=== PATIENT | male | born 1970 | race American Indian/Alaskan Native ===

== ENCOUNTER 2019-10-24 12:42 | Emergency (ER) | payer SELFPAY ==
--- NOTE | 2019-10-24 13:01 | Emergency Department Report ---
ED Neuro Deficit HPI - General Stated Complaint: POSS STROKE Source: patient Limitations: No Limitations - History of Present Illness Initial Comments: 49-year-old male with no past medical history presents to ED with left-sided w eakness. Patient states symptom onset was 3 days ago. He reports weakness in his left arm and also decreased sensation in the left arm and leg. Patient states his tongue feels swollen, also reports he has had blurry vision for the last 3 days as well. He also reports facial droop. Patient denies headache. -: days(s) (3) Location: speech, left arm, left leg Presenting Symptoms: Present: Weak/Paralyzed One Side, Blurred/Loss of Vision, Facial Droop/Numbness History of same: No Place: home Severity: moderate Quality: weak, numb Improves With: none Worsens With: none On Anticoagulants: No Associated Symptoms: denies other symptoms - Related Data Allergies/Adverse Reactions: Allergies Allergy/AdvReac Type Severity Reaction Status Date / Time latex Allergy Rash Verified 10/24/19 12:43 ED Review of Systems ROS: Stated complaint: POSS STROKE Other details as noted in HPI Comment: All other systems reviewed and negative Neurological: weakness, numbness. denies: headache ED Neuro Physical Exam - General General appearance: alert, in no apparent distress, obese Suspected Stroke: Yes - Head Head exam: Present: atraumatic, normocephalic - Eye Eye exam: Present: normal appearance, PERRL, EOMI - ENT ENT exam: Present: mucous membranes moist - Neck Neck exam: Present: normal inspection - Respiratory Respiratory exam: Present: normal lung sounds bilaterally. Absent: respiratory distress - Cardiovascular Cardiovascular Exam: Present: regular rate, normal rhythm - GI/Abdominal GI/Abdominal exam: Present: soft. Absent: distended, tenderness - Extremities Exam Extremities exam: Present: normal inspection - Neurological Exam Neurological exam: Present: alert, oriented X3 - NIHSS Assessment Interval: Baseline 1a. Level of Consciousness: alert/keenly responsive 1b. LOC Questions: answers both correctly 1c. LOC Commands: performs tasks correctly 2. Best Gaze: normal 3. Visual: no visual loss 4. Facial Palsy: minor paralysis 5b. Motor Arm Right: no drift 5a. Motor Arm Left: drift 6a. Motor Leg Left: no drift 6b. Motor Leg Right: no drift 7. Limb Ataxia: absent 8. Sensory: mild/moderate sensory loss 9. Best Language: no aphasia 10. Dysarthria: mild/moderate dysarthria 11. Extinction/Inattention: no abnormality Total Score: 4 Stroke Severity: Minor Stroke - Psychiatric Psychiatric exam: Present: normal affect, normal mood - Skin Skin exam: Present: warm, dry, intact, normal color ED Course Vital Signs 10/24/19 10/24/19 10/24/19 12:54 13:00 13:32 Temperature Pulse Rate 92 H 95 H Respiratory 12 Rate Blood Pressure 232/125 221/112 Blood Pressure [Left] O2 Sat by Pulse 97 98 Oximetry 10/24/19 10/24/19 10/24/19 13:45 14:00 14:22 Temperature Pulse Rate 88 89 87 Respiratory 15 16 16 Rate Blood Pressure 214/114 229/119 Blood Pressure 218/112 [Left] O2 Sat by Pulse 96 96 96 Oximetry 10/24/19 10/24/19 10/24/19 14:30 14:45 15:00 Temperature Pulse Rate 92 H 90 90 Respiratory 11 L 16 15 Rate Blood Pressure 213/121 225/118 222/123 Blood Pressure [Left] O2 Sat by Pulse 97 97 98 Oximetry 10/24/19 10/24/19 10/24/19 15:15 15:30 15:45 Temperature Pulse Rate 86 94 H 99 H Respiratory 15 16 16 Rate Blood Pressure 221/124 227/108 244/118 Blood Pressure [Left] O2 Sat by Pulse 97 98 100 Oximetry 10/24/19 15:54 Temperature 98.2 F Pulse Rate Respiratory Rate Blood Pressure Blood Pressure [Left] O2 Sat by Pulse Oximetry - Consultations Consultation #1: 10/24/19 14:41 CTA shows right MCA occulsion. Dr Small, teleneurologist, spoke w/ Dr Jacobs, stroke interventionalist at [facility]. States no ICU beds available. Dr Small will try [facility] and [facility] and get back to me. Consultation #2: 10/24/19 15:34 Spoke w/ Dr Aldridge, Neuro ICU physician at [facility]. He will accept the pt. Since petechial hemorrhages present, target SBP of <180. Awaiting bed assignment. - Lab Data Result diagrams: 10/24/19 13:00 10/24/19 14:42 Lab Results 10/24/19 10/24/19 10/24/19 Range/Units 13:00 13:00 13:00 WBC 4.4 L (4.5-11.0) K/mm3 RBC 6.06 H (3.65-5.03) M/mm3 Hgb 16.4 H (11.8-15.2) gm/dl Hct 49.4 H (35.5-45.6) % MCV 82 L (84-94) fl MCH 27 L (28-32) pg MCHC 33 (32-34) % RDW 14.9 (13.2-15.2) % Plt Count 304 (140-440) K/mm3 Lymph % (Auto) 19.0 (13.4-35.0) % [place] % (Auto) 8.0 H (0.0-7.3) % Eos % (Auto) 1.3 (0.0-4.3) % Baso % (Auto) 0.9 (0.0-1.8) % Lymph # 0.8 L (1.2-5.4) K/mm3 [place] # 0.4 (0.0-0.8) K/mm3 Eos # 0.1 (0.0-0.4) K/mm3 Baso # 0.0 (0.0-0.1) K/mm3 Seg Neutrophils % 70.8 H (40.0-70.0) % Seg Neutrophils # 3.1 (1.8-7.7) K/mm3 PT 13.9 (12.2-14.9) Sec. INR 1.06 (0.87-1.13) APTT 28.3 (24.2-36.6) Sec. Thrombin Time (15.1-19.6) Sec. Sodium TNR Potassium TNR Chloride TNR Carbon Dioxide TNR Anion Gap TNR BUN TNR Creatinine TNR Estimated GFR TNR BUN/Creatinine Ratio TNR Glucose TNR Calcium TNR Troponin T TNR 10/24/19 10/24/19 Range/Units 13:00 14:42 WBC (4.5-11.0) K/mm3 RBC (3.65-5.03) M/mm3 Hgb (11.8-15.2) gm/dl Hct (35.5-45.6) % MCV (84-94) fl MCH (28-32) pg MCHC (32-34) % RDW (13.2-15.2) % Plt Count (140-440) K/mm3 Lymph % (Auto) (13.4-35.0) % [place] % (Auto) (0.0-7.3) % Eos % (Auto) (0.0-4.3) % Baso % (Auto) (0.0-1.8) % Lymph # (1.2-5.4) K/mm3 [place] # (0.0-0.8) K/mm3 Eos # (0.0-0.4) K/mm3 Baso # (0.0-0.1) K/mm3 Seg Neutrophils % (40.0-70.0) % Seg Neutrophils # (1.8-7.7) K/mm3 PT (12.2-14.9) Sec. INR (0.87-1.13) APTT (24.2-36.6) Sec. Thrombin Time 15.6 (15.1-19.6) Sec. Sodium 139 Potassium 4.0 Chloride 100.1 Carbon Dioxide 26 Anion Gap 17 BUN 11 Creatinine 1.1 Estimated GFR > 60 BUN/Creatinine Ratio 10 Glucose 91 Calcium 9.5 Troponin T - EKG Data -: EKG Interpreted by Me EKG shows normal: sinus rhythm, axis, QRS complexes Rate: normal Interpretation: nonspecific ST-T wave dilip - Radiology Data Radiology results: report reviewed, image reviewed - Medical Decision Making 49-year-old male with left-sided weakness, facial droop. Time of onset is unclear as he told me one thing, however told the neurologist another. Patient not a candidate for TPA. CT head shows subacute stroke with small area of petechial hemorrhages. CTA head and neck were done which shows distal right M1 occlusion. Dr. Small, tele-neurologist, arranged for patient to be transferred to [facility] for further management. Patient currently on a Cardene drip for BP management. We are currently awaiting bed assignment. - Differential Diagnosis ischemic CVA, hemorrhagic CVA, HTN emergency Critical Care Time: Yes (35) Critical care time in (mins) excluding proc time.: 35 Critical care attestation.: If time is entered above; I have spent that time in minutes in the direct care of this critically ill patient, excluding procedure time. Critical Care Time: 35 min ED Disposition Clinical Impression: CVA (cerebral vascular accident) Disposition: DC/TX-70 ANOTHER TYPE HLTHCARE Is pt being admited?: No Condition: Stable Time of Disposition: 15:41
--- NOTE | 2019-10-24 13:14 | Cat Scan Report ---
CT HEAD WITHOUT CONTRAST INDICATION / CLINICAL INFORMATION: MAIN: CODE STROKE CALL [phone]. TECHNIQUE: All CT scans at this location are performed using CT dose reduction for ALARA by means of automated e xposure control. COMPARISON: None available. FINDINGS: HEMORRHAGE: Increased density of right occipital lobe cortex consistent with petechial hemorrhage. No other hemorrhage identified.. EXTRA-AXIAL SPACES: Cortical sulci, sylvian fissures and basilar cisterns have an unremarkable appear ance. VENTRICULAR SYSTEM: The ventricular system is of normal size and configuration. CEREBRAL PARENCHYMA: Abnormal hypodensity of right occipital lobe white matter and increased density of adjacent gyri. Subtle focal hypodensity in the right centrum semiovale. No other abnormal density. MIDLINE SHIFT OR HERNIATION: There is no significant mass effect. CEREBELLUM / BRAINSTEM: Brainstem and cerebellum have an unremarkable appearance. INTRACRANIAL VESSELS:No abnormalities are identified on this noncontrast head CT. ORBITS: visualized portions of the orbits have an unremarkable appearance. SOFT TISSUES of HEAD: No significant abnormality. CALVARIUM: Evaluation of bone windows reveals no abnormalities. PARANASAL SINUSES / MASTOID AIR CELLS: Paranasal sinuses are free from inflammatory mucosal disease. Mastoid air cells are normally pneumatized. ADDITIONAL FINDINGS: None. IMPRESSION: 1. A subacute right occipital lobe infarct with associated petechial hemorrhage in the involved abhi x. 2. A probable subacute right centrum semiovale nonhemorrhagic infarct. A verbal report was given to Dr. Mcneill in the emergency department on 10/24/2019 at 1309 p.m. EST. Signer Name: Zackary Gutierrez MD Signed: 10/24/2019 1:09 PM Workstation Name: [id number]
[2019-10-24 13:20] LABS: Basophils % (Auto) 0.9 % (0.0-1.8); Eosinophils # (Auto) 0.1 K/mm3 (0.0-0.4); Eosinophils % (Auto) 1.3 % (0.0-4.3); Hematocrit 49.4 % (35.5-45.6); Hemoglobin 16.4 gm/dl (11.8-15.2); Lymphocytes # (Auto) 0.8 K/mm3 (1.2-5.4); Mean Corpuscular HGB Conc 33 % (32-34); Mean Corpuscular Volume 82 fl (84-94); Monocytes # (Auto) 0.4 K/mm3 (0.0-0.8); Platelet Count 304 K/mm3 (140-440); Red Blood Count 6.06 M/mm3 (3.65-5.03); Red Cell Distribution Width 14.9 % (13.2-15.2)
--- NOTE | 2019-10-24 13:24 | Emergency Department Report ---
HPI - General Time Seen by Provider: 10/24/19 13:02 - HPI HPI: [facility] Date of Service: 10/24/2019 12:32:16 Impression: Rule Out Acute Ischemic Stroke Comments/Sign-Out: The patinent has blurred for about one week. He woke up with left sided weaknesss today.Progressively gettting worsse, left arm was cold numb. The patient also has occlusive disease of the right mca - it llooks to be that there is some level of hemorrhage. Mechanism of Stroke: Possible Thromboembolic Metrics: Last Known Well: 10/23/2019 12:57:47 [facility] Notification Time: 10/24/2019 12:31:47 Arrival Time: 10/24/2019 13:20:37 Stamp Time: 10/24/2019 12:32:16 Time First Login Attempt: 10/24/2019 12:41:26 Video Start Time: 10/24/2019 12:41:26 Symptoms: coming from bathroom NIHSS Start Assessment Time: 10/24/2019 12:57:07 Patient is not a candidate for tPA. Patient was not deemed candidate for tPA thrombolytics because of Last Well Known Above 4.5 Hours. Video End Time: 10/24/2019 13:23:07 CT head was reviewed and results were: Right parietal subacute infarct with petechial hemorrhage ? Otehr underlying issue Clinical Presentation is Suggestive of Large Vessel Occlusive Disease, Recommendations are as Follows INR declines intervention and transfer. CTA Head and Neck. Radiologist was called back for review of advanced imaging on 10/24/2019 13:20:28 ED Physician notified of diagnostic impression and management plan on 10/24/2019 13:00:57 Our recommendations are outlined below. Recommendations: Activate Stroke Protocol Admission/Order Set Stroke/Telemetry Floor Neuro Checks Bedside Swallow Eval DVT Prophylaxis IV Fluids, Normal Saline Head of Bed Below 30 Degrees Euglycemia and Avoid Hyperthermia (PRN Acetaminophen) Hold Antithrombotics for Now Recommended Scan: MRI Head with and Without Contrast Lipid Panel to Be Obtained, if Not Done in the Last 30 Days Therapies: Physical Therapy, Occupational Therapy, Speech Therapy Assessment When Applicable Dysphaghia Screen: Swallow Evaluation, Bedside NPO Until Swallow Evaluation History of Present Illness: Patient was brought by EMS for symptoms of coming from bathroom The pateinet was coming from bathroom. He felt dizzy since about two days prior his vision was blurry since last week. CT head was reviewed. Last seen normal was beyond 4.5 hours of presentation. There is no history of hemorrhagic complications or intracranial hemorrhage. There is no history of Recent Anticoagulants. There is no history of recent major surgery. There is no history of recent stroke. Examination: 1A: Level of Consciousness - Requires repeated stimulation to arouse + 2 1B: Ask Month and Age - 1 Question Right + 1 1C: Blink Eyes & Squeeze Hands - Performs Both Tasks + 0 2: Test Horizontal Extraocular Movements - Normal + 0 3: Test Visual [place] - No Visual Loss + 0 4: Test Facial Palsy (Use Grimace if Obtunded) - Normal symmetry + 0 5A: Test Left Arm Motor Drift - Drift, but doesn't hit bed + 1 5B: Test Right Arm Motor Drift - No Drift for 10 Seconds + 0 6A: Test Left Leg Motor Drift - No Drift for 5 Seconds + 0 6B: Test Right Leg Motor Drift - No Drift for 5 Seconds + 0 7: Test Limb Ataxia (FNF/Heel-Caceres) - No Ataxia + 0 8: Test Sensation - Normal; No sensory loss + 0 9: Test Language/Aphasia - Normal; No aphasia + 0 10: Test Dysarthria - Severe Dysarthria: Unintelligble Slurring or Out of Proportion to Aphasia + 2 11: Test Extinction/Inattention - No abnormality + 0 NIHSS Score: 6 Patient was informed the Neurology Consult would happen via TeleHealth consult by way of interactive audio and video telecommunications and consented to receiving care in this manner. Due to the immediate potential for life-threatening deterioration due to underlying acute neurologic illness, I spent 35 minutes providing critical care. This time includes time for face to face visit via telemedicine, review of medical records, imaging studies and discussion of findings with providers, the patient and/or family. Dr Benji Small [facility] Case [id number] ED Review of Systems ROS: Stated complaint: POSS STROKE Other details as noted in HPI Neurological: weakness, numbness. denies: headache ED Medical Decision Making - Lab Data Result diagrams: 10/24/19 13:00 10/24/19 13:00 Critical care attestation.: If time is entered above; I have spent that time in minutes in the direct care of this critically ill patient, excluding procedure time. ED Disposition Condition: Stable
[2019-10-24 13:31] LABS: INR 1.06 (0.87-1.13); Partial Thromboplastin Time 28.3 Sec. (24.2-36.6)
[2019-10-24 13:49] LABS: Hemolysis Index 299
[2019-10-24 13:52] LABS: BUN/Creatinine Ratio TNR; Blood Urea Nitrogen TNR mg/dL (9-20)
[2019-10-24 13:53] LABS: Calcium TNR mg/dL (8.4-10.2)
--- NOTE | 2019-10-24 14:23 | Cat Scan Report ---
CTA NECK WITH CONTRAST HISTORY: Left-sided weakness COMPARISON: None. TECHNIQUE: Routine CTA of the neck was performed. 3-D/MIP reformats were postprocessed. Percentage s tenosis is determined by direct quantitative measurements of diseased internal carotid artery diamete r compared with normal distal internal carotid artery reference segments or by criteria similar to NA SCET where applicable.All CT scans at this location are performed using CT dose reduction for ALARA b y means of automated exposure control CONTRAST: 100 ml of Omnipaque 350 FINDINGS: Poor ofohiz-ep-redih is seen in the source images which limits this CTA. Aortic arch: No significant abnormality. Cervical vertebral arteries: No significant abnormality. Common carotid arteries: No significant abnormality. Carotid bifurcations: No significant abnormality Cervical internal carotid arteries: No significant abnormality. Additional findings: None. IMPRESSION: Patent CT of the neck due to poor [id number] Carotid bifurcations are normal. Signer Name: Nas Goodson MD Signed: 10/24/2019 2:19 PM Workstation Name: [id number]
--- NOTE | 2019-10-24 14:33 | Cat Scan Report ---
CTA HEAD WITH CONTRAST HISTORY: Left-sided weakness COMPARISON: None. TECHNIQUE: Routine non-contrast CT Head, CTA of the head and post-contrast CT Head are performed. 3-D /MIP reformats postprocessed. All CT scans at this location are performed using CT dose reduction for ALARA by means of automated exposure control CONTRAST: 100 ml of Omnipaque 350 FINDINGS: CTA Head: Intracranial vertebral arteries: No significant abnormality. Basilar artery: No significant abnormality. Posterior cerebral arteries: No significant abnormality. Intracranial internal carotid arteries: No significant abnormality. Anterior cerebral arteries: No significant abnormality. Middle cerebral arteries: Left middle cerebral artery is normal. Fusion of the distal right M1 segmen t is seen. Approximately 50% stenoses in the mid segment of patent M1 segment. Dural venous sinuses:Not optimally opacified. No significant abnormality. Additional findings: None. IMPRESSION: Occluded distal right M1 segment Signer Name: Nas Goodson MD Signed: 10/24/2019 2:28 PM Workstation Name: [id number]
[2019-10-24 15:16] LABS: BUN/Creatinine Ratio 10; Blood Urea Nitrogen 11 mg/dL (9-20); Calcium 9.5 mg/dL (8.4-10.2); Hemolysis Index 6
[2019-10-24] MEDS ORDERED: niCARdipine 50 MG in SODIUM CHLORIDE 0.9% 250ML 230 ML IV SCH (16:00)
[2019-10-24 19:00] VITALS: BP 162/87
== END 2019-10-24 19:01 | disposition other institution (70) ==
LOC: ED 12:42
DX: I63.9 Cerebral infarction, unspecified (principal)
CPT/HCPCS: 36415; 70450; 70496; 70498; 80048; 82962; 85025; 85610; 85670; 85730; 93005; 93010; 96365; 99285; J7050; Q9967